=== PATIENT | female | born 1955 | race African-American/Black ===

== ENCOUNTER → 2022-10-12 | Outpatient (CLI) | payer OTHER ==
[~2022-10-12] MED LIST: LISI10TA34
[2022-10-12 13:32] LABS: Albumin 3.9 g/dL (3.4-5.0); Calcium 8.8 mg/dL (8.5-10.1); Potassium 4.1 mmol/L (3.5-5.1)
[2022-10-12 13:36] LABS: BUN/Creatinine Ratio 13.9 (10.0-20.0); Bilirubin, Total 0.4 mg/dL (0.2-1.0); Total Protein 8.3 g/dL (6.4-8.2)
== END | disposition home or self-care (01) ==
LOC: LAB 12:50
PROVIDERS: ATTEND Internal Medicine
DX: G81.91 Hemiplegia, unspecified affecting right dominant side (principal)
CPT/HCPCS: 36415; 80053

== ENCOUNTER 2024-04-07 19:30 | Emergency (ER) | payer BC, OTHER ==
[~2024-04-07] VITALS: Ht 160 cm; Wt 82.8 kg
[2024-04-07] MEDS ORDERED: MOXI0.5S3 OP (20:11)
--- NOTE | 2024-04-07 20:11 | ED.PDOC ---
Eye-HPI HPI Comments This is a 68-year-old female chief complaint bilateral eye itchiness or redness x3 days. Patient states itchiness and redness started in her left eye 3 days ago and over the past 24 hours his travel to her right eye. Reports no vision changes, known injury, known foreign body, fever or chills. Chief Complaint: Eye Problem Time Seen by MD: 19:35 Primary Care Provider: SURESH Reviewed Notes: Nurses Notes, Medications, Allergies Allergies: Coded Allergies: NO KNOWN ALLERGIES (Unverified , 10/27/12) Home Meds Active Scripts Moxifloxacin Hydrochloride (Moxifloxacin HCl) 0.5 % Sara, 1 DROP OP TID for 7 Days, #2 ML Prov:AMOS WILKERSON [employer] 04/07/24 Reported Medications Lisinopril (Lisinopril) 10 Mg Tab, DAILY 10/27/12 Information Source: Patient Mode of Arrival: Ambulatory Past Medical History PAST MEDICAL HISTORY: HTN Surgical History: Tonsillectomy, Tubal Ligation Family History Family History: No family hx of Cancer, No family hx of Heart fiordaliza Social History Smoker: Non-Smoker Alcohol: Other Drugs: Denies Drug Use Lives In: Home Constitutional: denies: chills, diaphoresis, fatigue, fever, malaise, sweats, weakness, others EENTM: reports: eye redness; denies: blurred vision, double vision, ear bleeding, ear discharge, ear drainage, ear pain, ear ringing, eye pain, hearing loss, mouth pain, mouth swelling, nasal discharge, nose bleeding, nose congestion, nose pain, photophobia, tearing, throat pain, throat swelling, voice changes, others Respiratory: denies: cough, hemoptysis, orthopnea, SOB at rest, shortness of breath, SOB with excertion, stridor, wheezing, others Cardiovascular: denies: chest pain, dizzy spells, diaphoresis, Dyspnea on exertion, edema, irregular heart beat, left arm pain, lightheadedness, palpitations, PND, syncope, others Gastrointestinal: denies: abdomen distended, abdominal pain, blood streaked bowels, constipated, diarrhea, dysphagia, difficulty swallowing, hematemesis, melena, nausea, poor appetite, poor fluid intake, rectal bleeding, rectal pain, vomiting, others Genitourinary: denies: abnormal vagina bleeding, burning, dyspareunia, dysuria, flank pain, frequency, hematuria, incontinence, pain, , vagina discharge, urgency, others Neurological: denies: dizziness, fainting, headache, left sided numbness, left sided weakness, numbness, paresthesia, pre-existing deficit, right sided numbness, right sided weakness, seizure, speech problems, tingling, tremors, weakness, others Musculoskeletal: denies: back pain, gout, joint pain, joint swelling, muscle pain, muscle stiffness, neck pain, others Integumetry: denies: bruises, change in color, change in hair/nails, dryness, laceration, lesions, lumps, rash, wounds, others Allergic/Immunocompromised: denies: Difficulty Healing, Frequent Infections, Hives, Itching, others Hematologic/Lymphatic: denies: anemia, blood clots, easy bleeding, easy bruising, swollen glands, others Endocrine: denies: excessive hunger, excessive sweating, excessive thirst, excessive urination, flushing, intolerance to cold, intolerance to heat, unexplained weight gain, unexplained weight loss, others Psychiatric: denies: anxiety, bipolar disorder, depression, hopeless, panic disorder, schizophrenia, sleepless, suicidal, others Physical Exam General Appearance: No Apparent Distress, Normal HEENT: Pharynx Normal, TMs Normal, Other (Bilateral eyes hyperemia conjunctiva with clear drainage) Neck: Full Range of Motion, Non-Tender Respiratory: Lungs Clear, No Respiratory Distress, Normal Breath Sounds Cardiovascular: No Edema, No JVD, No Murmur, No Gallop, Normal Peripheral Pulses, Regular Rate/Rhythm Breast Exam: Deferred Gastrointestinal: No Organomegaly, Non Tender, No Pulsatile Mass, Normal Bowel Sounds, Soft Genitalia: Deferred Pelvic: Deferred Rectal: Deferred Extremities: Normal capillary refill, Normal inspection, Normal range of motion, Non-tender, No pedal edema Musculoskeletal : Apperance: Normal Neurologic: Alert, pinion sorter II-XII nml as Tested, No Motor Deficits, Normal Affect, Normal Mood, No Sensory Deficits Cerebellar Function: Normal Reflexes: Normal Skin: Dry, Normal Color, Warm Lymphatic: No Adenopathy Was a procedure done? Was a procedure done?: No EENT DIFF Eye: Conjunctivitis, Allergic, Bacterial X-Ray, Labs, Meds, VS Vital Signs Date Time Temp Pulse Resp B/P (MAP) Pulse Ox O2 Delivery O2 Flow Rate FiO2 04/07/24 21:29 120/57 04/07/24 20:40 197/80 04/07/24 20:33 66 18 99 Room Air 04/07/24 20:33 98.0 66 18 197/80 (119) 99 98.0 04/07/24 19:37 98.0 70 18 174/67 (102) 99 Current Medications Medications (Trade) Dose Ordered Sig/Glendy Route Start Time Stop Time Status Last Admin Dexamethasone Sodium Phosphate (Decadron Injection) 10 mg ONCE ONCE IM 04/07/24 20:15 04/07/24 20:16 DC 04/07/24 20:19 Clonidine HCl (Catapres Tablet) 0.2 mg ONCE ONCE PO 04/07/24 20:45 04/07/24 20:46 DC 04/07/24 20:40 X-Ray, Labs, Meds, VS Comment Likely bacterial we will treatment moxifloxacin drops x7 days. Patient hypertensive triage patient reports history of hypertension currently taking lisinopril however has not filled her medications recently. She denies chest pain, shortness of breath, difficulty breathing, weakness, numbness, or headaches. Patient given clonidine 0.2 mg we will continue to monitor and discharge when normotensive. We will also send a prescription for patient's blood pressure medications as well. Patient's blood pressure upon discharge 120/57. Denies any symptoms at this time. Patient requesting discharge. Advised her to follow up with the PCP in 2-3 days for continued management of her blood pressure. ER return precautions given. Patient agrees with discharge plan of care. Time of 1ST Reevaluation: 21:45 Reevaluation 1ST: Improved Patient Education/Counseling: Diagnosis, Treatment, Prognosis, Need For Follow Up Family Education/Counseling: No Family Present Departure 1 Departure Time of Disposition: 21:46 Impression: Primary Impression: Bacterial conjunctivitis of both eyes Additional Impression: Hypertension Qualified Codes: I10 - Essential (primary) hypertension Disposition: HOME / SELF CARE / HOMELESS Condition: Stable e-Prescriptions Losartan Potassium (Losartan Potassium) 25 Mg Tab 1 TAB PO DAILY for 15 Days, #15 TAB Prov: AMOS WILKERSON 04/07/24 Moxifloxacin Hydrochloride (Moxifloxacin HCl) 0.5 % Sara 1 DROP OP TID for 7 Days, #2 ML Prov: AMOS WILKERSON 04/07/24 Discharged With: Self Critical Care Note Critical Care Time?: No Stability Stability form required: No AMOS WILKERSON Apr 07, 2024 20:11
[2024-04-07] MEDS: DexAMETHasone SOD PHOS 10MG/1ML VIAL INJ IM ONE (20:19)
[2024-04-07 20:33] VITALS: BP 197/80; PULSE 66; RESP 18; TEMP 98; O2SAT 99
[2024-04-07] MEDS: cloNIDine HCL 0.1 MG TAB PO ONE (20:40)
[2024-04-07] MEDS ORDERED: LOSA-533 PO (21:47)
== END 2024-04-07 21:31 | disposition home or self-care (01) ==
LOC: ER 19:30
DX: H10.89 Other conjunctivitis (principal); I10 Essential (primary) hypertension; Z90.89 Acquired absence of other organs; Z98.890 Other specified postprocedural states; Z79.899 Other long term (current) drug therapy
CPT/HCPCS: 96372; 99283; J1100

== ENCOUNTER 2025-01-23 10:41 | Outpatient (CLI) | payer OTHER ==
[2025-01-23 11:07] LABS: Hematocrit 35.6 % (36.0-46.0); Hemoglobin 12.0 g/dL (12.2-16.2); Mean Corpuscular Hemoglobin 29.8 pg (28.0-32.0); Mean Corpuscular Volume 88.5 fL (80.0-100.0); Nucleated Red Blood Cells % 0.1 %
[2025-01-23 11:35] LABS: Iron 115.0 ug/dL (50-170)
[2025-01-23 11:38] LABS: Total Iron Binding Capacity 302.0 ug/dL (250-425)
[2025-01-23 11:39] LABS: Carcinoembryonic Antigen 1.2 ng/mL (<=5.0); Ferritin 197.4 ng/mL (10-291); Free T3 2.78 pg/mL (2.3-4.2)
[2025-01-23 11:40] LABS: Free T4 (Free Thyroxine) 1.2 ng/dL (0.89-1.76)
[2025-01-23 12:08] LABS: Thyroid Stimulating Hormone 2.44 uIU/mL (0.55-4.78)
[2025-01-23 12:09] LABS: Alanine Aminotransferase 20 U/L (7-40); Albumin 4.3 g/dL (3.2-4.8); Alkaline Phosphatase 109 U/L (46-116); Anion Gap 10 (5-15); BUN/Creatinine Ratio 8.1 (10.0-20.0); Bilirubin, Total 0.7 mg/dL (0.2-1.0); Calcium 9.4 mg/dL (8.7-10.4); Carbon Dioxide 27 mmol/L (20-31); Chloride 106 mmol/L (98-107); Creatine Kinase IFCC 106 U/L (34-145); Glucose 91 mg/dL (74-106); Sodium 143 mmol/L (136-145); Total Protein 7.8 g/dL (5.7-8.2)
[2025-01-23 12:13] LABS: Blood Urea Nitrogen 7 mg/dL (9-23); Potassium 3.5 mmol/L (3.5-5.1)
[2025-01-23 14:18] LABS: Triglycerides 51 mg/dL (< 150)
[2025-01-23 14:24] LABS: Cholesterol 216 mg/dL (< 200); HDL Cholesterol 72 mg/dL (40-59)
== END 2025-01-23 17:00 | disposition home or self-care (01) ==
LOC: LAB 10:41
PROVIDERS: ATTEND Internal Medicine
DX: E78.5 Hyperlipidemia, unspecified (principal); E55.9 Vitamin D deficiency, unspecified; R63.4 Abnormal weight loss; Z00.01 Encounter for general adult medical examination with abnormal findings
CPT/HCPCS: 36415; 80053; 80061; 82105; 82306; 82378; 82550; 82607; 82728; 82746; 83540; 83550; 83615; 84439; 84443; 84481; 85025

== ENCOUNTER 2025-01-23 16:16 | Outpatient (CLI) | payer OTHER | END 2025-01-23 17:00 | disposition home or self-care (01) | LOC: LAB 16:16 | PROVIDERS: ATTEND Internal Medicine | DX: Z12.11 Encounter for screening for malignant neoplasm of colon (principal) | CPT/HCPCS: 82270 ==